=== PATIENT | female | born 1990 | race Caucasian/White ===

== ENCOUNTER 2016-09-01 05:42 | Day surgery (SDC) ==
[2016-08-28 10:24] LABS: MANUAL DIFF NEEDED? NO
[2016-08-28 11:26] LABS: BASO% 0.4 % (0.0-0.8); EOS# 0.07 X1000 (0.0-0.7); EOS% 1.3 % (0.0-10.0); HEMATOCRIT 39.6 % (37.0-47.0); LYMPH# 2.43 X1000 (1.2-3.4); MCH 28.2 PG (27-31); MCHC 32.8 g/dL (33-37); MCV 85.9 FL (81-99); MONO# 0.62 X1000 (0.11-0.59); MONO% 11.5 % (1.7-9.3); MPV 12.1 FL (7.4-10.4); NEUT% 41.8 % (42.2-75.2); PLT 223 X1000 (130-400); RBC 4.61 XMIL (4.2-5.4)
--- NOTE | 2016-08-31 16:40 | HISTORY AND PHYSICAL ---
DATE OF PLANNED PROCEDURE: 09/01/2016 PREOPERATIVE DIAGNOSIS: Menorrhagia and pelvic pain. CONDITION: Stable. HISTORY OF PRESENT ILLNESS: Ms Galindo is a 25-year-old 2, para 2, with a history of 2 previous deliveries who is complaining of the above problems and she desires definitive treatment. She has been on control pills in the past and desires more permanent management. Ultrasound reveals a slightly enlarged uterus suspicious for adenomyosis. Ovaries appear normal though. PAST SURGICAL HISTORY: Two deliveries with cholecystectomy also being done. PAST MEDICAL HISTORY: No past medical history. ALLERGIES: No known drug allergies. MEDICATIONS: On no medications at this time. FAMILY HISTORY: Significant for diabetes and hypertension and asthma in the father. SOCIAL HISTORY: She denies alcohol or drug abuse, but does state positive tobacco use. PHYSICAL EXAMINATION: VITAL SIGNS: Stable. She is afebrile. GENERAL: She is alert and cooperative, in no distress. NECK: Supple. LUNGS: Clear. HEART: Regular sinus rhythm. ABDOMEN: Soft. PELVIC: Deferred. EXTREMITIES: No cyanosis, clubbing, edema in extremities. IMPRESSION: 1. Pelvic pain. 2. Menorrhagia. 3. Enlarged uterus. PLAN: Da Rosana laparoscopic hysterectomy with bilateral salpingectomy.
[2016-09-01] MEDS ORDERED: TRANSDERM-SCOP ONE (06:50)
[2016-09-01] MEDS ORDERED: LR 1,000 ML ONE ×3 (06:50→11:30)
[2016-09-01] MEDS ORDERED: REGLAN ONE (06:50)
[2016-09-01] MEDS ORDERED: PEPCID ONE (06:50)
[2016-09-01] MEDS ORDERED: VALIUM ONE (06:51)
[2016-09-01] MEDS ORDERED: KEFZOL 1 GM/D5W 50 ML ONE (06:51)
[2016-09-01] MEDS ORDERED: D10W 1,000 ML ONE (07:21)
[2016-09-01] MEDS ORDERED: MARCAINE 0.25% PF/EPI 1:200,000 ONE (07:21)
[2016-09-01 10:27] LABS: URINE MICRO REVIEW NEEDED? NO; URINE SOURCE CATH
[2016-09-01] MEDS ORDERED: VERSED ONE (10:32)
[2016-09-01] MEDS ORDERED: FENTANYL ONE (10:32)
[2016-09-01] MEDS ORDERED: DIPRIVAN 1% ONE (10:32)
[2016-09-01 10:33] LABS: BILIRUBIN URINE NEGATIVE (NEGATIVE); BLOOD URINE NEGATIVE (NEGATIVE); COLOR YELLOW; GLUCOSE URINE NEGATIVE (NEGATIVE); LEUKOCYTES URINE NEGATIVE (NEGATIVE); NITRITE URINE NEGATIVE (NEGATIVE); PH URINE 7.5; PROTEIN URINE NEGATIVE (NEGATIVE); TURBIDITY URINE CLEAR (CLEAR); UR EPITHELIAL CELLS <10 /HPF (<10); URINE BACTERIA NEGATIVE /HPF; URINE RBC <10 /HPF (<10); URINE WBC <10 /HPF (<10); UROBILINOGEN URINE NORMAL (NORMAL)
[2016-09-01] MEDS ORDERED: NEOSTIGMINE ONE (10:45)
[2016-09-01] MEDS ORDERED: ZOFRAN ONE ×2 (10:45→11:42)
[2016-09-01] MEDS ORDERED: XYLOCAINE-MPF 2% ONE (10:45)
[2016-09-01] MEDS ORDERED: ROBINUL ONE (10:45)
[2016-09-01] MEDS ORDERED: TORADOL ONE (10:45)
[2016-09-01] MEDS ORDERED: NORCURON ONE (10:45)
[2016-09-01] MEDS ORDERED: LASIX ONE (10:45)
[2016-09-01] MEDS ORDERED: QUELICIN (DOSE) ONE (10:46)
[2016-09-01] MEDS ORDERED: LR 2,000 ML ONE (10:46)
[2016-09-01] MEDS ORDERED: STERILE WATER INJ. ONE (10:46)
[2016-09-01] MEDS ORDERED: DECADRON ONE (10:46)
[2016-09-01] MEDS ORDERED: ZOFRAN IV PRN (10:59)
[2016-09-01] MEDS ORDERED: NORCO-10 PO PRN (10:59)
[2016-09-01] MEDS ORDERED: PHENERGAN IM PRN (10:59)
[2016-09-01 12:09] LABS: HEMATOCRIT 36.2 % (37.0-47.0); HEMOGLOBIN 11.9 g/dL (12.0-16.0)
[2016-09-01] MEDS ORDERED: NORCO-10 ONE (12:38)
[2016-09-01 13:36] VITALS: BP 138/72
--- NOTE | 2016-09-01 13:49 | OPERATIVE NOTE ---
PROCEDURE DATE: 09/01/2016 PREOPERATIVE DIAGNOSES: 1. Menorrhagia. 2. Pelvic pain. 3. Enlarged uterus. POSTOPERATIVE DIAGNOSES: 1. Menorrhagia. 2. Pelvic pain. 3. Enlarged uterus. PROCEDURE PERFORMED: da Rosana total laparoscopic hysterectomy with left salpingo-oophorectomy, salpingectomy, and cystoscopy. SURGEON: Orville Malone MD ANESTHESIA: General endotracheal. ANESTHESIOLOGIST: Hiren Arrioal MD FINDINGS: She had an enlarged uterus and some omental adhesions to the uterus. Cystoscopy was normal. ESTIMATED BLOOD LOSS: 25 mL. COMPLICATIONS: None. DRAIN: Borjas catheter. INDICATIONS: Ms. Galindo is a 25-year-old, 2, para 2, with the above diagnoses, who desires definitive treatment. She was appropriately consented. All questions were answered. She was brought to the operating room, where she was placed under general endotracheal anesthesia and prepped and draped in dorsal lithotomy position. An area 2 cm above the umbilicus was anesthetized with 0.25% Marcaine with epinephrine. An incision was made. An 11 mm trocar was placed into the abdomen. Placement was verified with the camera. She was then insufflated with CO2 and placed in Trendelenburg. Then, robotic ports were placed to the left and a 5 mm technical staff assistant port was placed on the patient's left side. Then, attention was turned to the vaginal portion of the case. A speculum was placed. The anterior lip of the cervix was grasped with a single-tooth tenaculum, and the cervix was dilated with Hegar dilators to #8. Once this was done, 2-0 Prolene stitches were placed at 12 o'clock and 6 o'clock. The medium the uterine manipulator was placed into the uterus. The balloon was blown up. The cervical cap was pushed down and the suture that had been previously placed was fed through fenestrations in the cervical cap and then the stay was pushed down to hold the cap tight against the cervix and it was screwed in place. At that point, the speculum was removed and a Borjas catheter was placed. At this point, this completed the 1st of my sterile portion so, as I went to the robot, the robot was docked. Once the robot was docked, I took control of a monopolar scissors and the PK dissecting forceps. Using the technical staff assistant port, scissors, and PK, the left infundibulopelvic was grasped, cauterized, and cut. The other supporting ligaments of the ovary to the round ligament were grasped, cauterized, and cut. The anterior and posterior leaves of the broad ligament were grasped, cauterized, and cut to the internal cervical os, at which point the bladder was sharply dissected off the cervix and pushed down. The uterine arteries were skeletonized, grasped, and cauterized but not cut. Attention was then turned to the left. The tube was dissected off and placed in the cul-de-sac. The round ligament was then grasped, cauterized, and cut. The uteroovarian was grasped, cauterized, and cut. The anterior and posterior leaves of the broad ligament were grasped, cauterized, and cut down to the lateral internal cervical os, at which point the bladder was sharply dissected off the right side and pushed down past the cervical cap. The uterine arteries were skeletonized, grasped, and cauterized. Then, using the scissors in a sweeping motion, the vaginal tissue was cut, exposing the cervical cap. This method was used to totally detach the cervix from the vaginal tissue and then, once completely detached, the specimen was removed through the vagina. I could not find the tube at this point. The scissors were then replaced with needle graspers and then a V-Loc suture that had been previously placed in the abdomen was grasped from the sidewall and the cuff was closed in a single nonlocking manner. Once this was done, irrigation was done. There was 25 mL of blood loss. Irrigation was carried out. Pressure was dropped. There was slight bleeding from the patient's left side. This was handled by cauterizing with the PK. Once this was done, repeat irrigation was done. Pressure was dropped again. There was no bleeding. The suture was buried in the posterior cul-de-sac and the scissors were switched with a needle after school driver and the stitch was cut. Holding the stitch with the technical staff assistant port grasper, the camera was pulled back, exposing the tube that was underneath the trocar, so the tube and the needle were grasped and that completed the robotic portion of the case. As the robot was being undocked and moved, I rescrubbed and took control over, reaching in and grasping the tube and suture and removing them through the 11 mm port. Then, a disposable Dirk-Lucero was used to close the fascia on the 11 mm port and then all trocars were removed. CO2 was released. The nurses and medical research tech took over, repairing the skin at all 4 site. Attention was turned to cystoscopy. She was previously given Lasix. The Borjas was removed. Using a 70-degree scope, the scope was advanced through the urethra into the bladder. The bladder was filled with 300 mL of D10W and then, using a systematic approach the bladder dome was inspected and found to have no suture material nor was any suture material noted in the trigone area. Both ureters were noted to be peristalsing normally and ejecting urine. At this point, the cystoscope was removed. The Borjas was replaced. She was taken down from dorsal lithotomy, awakened, and taken to the recovery room in stable condition.
[2016-09-01] MEDS ORDERED: TORADOL IV SCH (16:07)
[2016-09-01] MEDS ORDERED: PERIDEX MT SCH (21:00)
== END 2016-09-01 13:35 | disposition home or self-care (01) ==
LOC: OPS 05:42
PROVIDERS: ATTEND Obstetrics & Gynecology
DX: N92.0 Excessive and frequent menstruation with regular cycle (principal); N80.0 Endometriosis of uterus; N83.02 Follicular cyst of left ovary; R10.2 Pelvic and perineal pain; F17.210 Nicotine dependence, cigarettes, uncomplicated; Z79.899 Other long term (current) drug therapy; Z83.3 Family history of diabetes mellitus; Z82.49 Family history of ischemic heart disease and other diseases of the circulatory system
CPT/HCPCS: 81001; 84703; 85014; 85018; 85025; 88307; J0330; J0690; J1100; J1885; J1940; J2250; J2405; J3010; J7120; J2710